=== PATIENT | female | born 1975 | race Two or more races ===

== ENCOUNTER 2022-05-05 22:00 | Emergency (ER) | payer MEDICAID, OTHER ==
[~2022-05-05] VITALS: Ht 167.6 cm; Wt 86.0 kg
[2022-05-05 23:17] VITALS: BP 133/67
== END 2022-05-06 00:27 | disposition home or self-care (01) ==
LOC: ER 22:03
DX: F41.0 Panic disorder [episodic paroxysmal anxiety] (principal); F12.10 Cannabis abuse, uncomplicated